=== PATIENT | female | born 1945 | race Caucasian/White ===

== ENCOUNTER 2021-05-08 14:09 | Emergency (ER) | payer OTHER ==
[~2021-05-08] VITALS: Ht 154.9 cm; Wt 66.7 kg
[2021-05-08] MEDS ORDERED: [UNRECOGNIZED DRUG - OTHER] (14:15)
[2021-05-08] MEDS ORDERED: DULOXETINE HCL40 MG PO (14:24)
[2021-05-08] MEDS ORDERED: NORFLEX100MG PO (14:57)
[2021-05-08] MEDS ORDERED: KETO10TA2 PO (14:57)
== END 2021-05-08 15:52 | disposition home or self-care (01) ==
LOC: ER 14:09
DX: M25.562 Pain in left knee (principal)